=== PATIENT | male | born 1975 | race Caucasian/White ===

== ENCOUNTER 2022-04-15 06:23 | Day surgery (SDC) | payer BC ==
[~2022-04-15 06:23] MED LIST: ACETAMINOPHEN TAB 500 MG TAB PO PRN; DEXAMETHASONE SOD PHOSPHATE 4 MG/ML 1 ML VIAL IV ONE; HEPARIN SODIUM,PORCINE/PF 5,000 UNIT/0.5 ML SYRINGE SQ PRN; LACTATED RINGERS 1,000 ML IV SCH; LIDOCAINE 1% (10MG/ML) FOR IV START INTRADERMA PRN; ONDANSETRON 4 MG/2 ML VIAL IVP ONE; SCOPOLAMINE 1 MG/72 HR PATCH TRANSDERM ONE
[2022-04-15 07:01] LABS: Glucose,Whole Blood 114 mg/dL (70-110)
--- NOTE | 2022-04-15 07:40 | P.GSHP ---
History of Present Illness H&P Date: 04/15/22 Chief Complaint: Incisional hernia This is a 38-year-old male who's developed an incisional hernia located near his umbilicus. Patient presents today for laparoscopic robotic-assisted repair. Past Medical History Past Medical History: No Reported History History of Any Multi-Drug Resistant Organisms: None Reported Past Surgical History: Hernia Repair, Orthopedic Surgery Additional Past Surgical History / Comment(s): rt inguinal hernia, lft femur open compound fx repair as teen Additional Past Anesthesia/Blood Transfusion Reaction / Comment(s): could hear everything but unable to move during femur repair Smoking Status: Current every day smoker - Past Family History Mother Family Medical History: No Reported History Father Family Medical History: Cancer Additional Family Medical History / Comment(s): bladder cancer Medications and Allergies Home Medications Medication Instructions Recorded Confirmed Type Atorvastatin Calcium 20 mg PO HS 04/10/22 04/10/22 History Hydrocodone/Acetaminophen 1 tab PO TID PRN 04/10/22 04/15/22 History [Hydrocodone/Acetaminophen 7.5-325] Multivitamin [Multivitamins Adult 1 tab PO DAILY 04/10/22 04/10/22 History Gummies] OLANZapine 5 mg PO HS 04/10/22 04/15/22 History Zolpidem [Ambien] 10 mg PO HS 04/10/22 04/10/22 History lamoTRIgine 100 mg PO BID 04/10/22 04/15/22 History PARoxetine HCL [Paxil] 30 mg PO DAILY 04/15/22 04/15/22 History Allergies Allergy/AdvReac Type Severity Reaction Status Date / Time bupropion [From Wellbutrin] AdvReac Intermediate Unknown Verified 04/10/22 15:52 Surgical - Exam Vital Signs Temp Pulse Resp BP Pulse Ox 96.8 F L 67 16 132/70 100 04/15/22 06:54 04/15/22 06:54 04/15/22 06:54 04/15/22 06:54 04/15/22 06:54 - General well developed, well nourished, no distress - Eyes PERRL - ENT normal pinna - Neck no masses - Respiratory normal expansion - Cardiovascular Rhythm: regular - Abdomen 4 cm incarcerated incisional hernia located at umbilicus Abdomen: soft, non tender Results - Labs Abnormal Lab Results - Last 24 Hours (Table) 04/15/22 Range/Units 06:59 POC Glucose (mg/dL) 114 H (70-110) mg/dL Assessment and Plan Assessment: Incarcerated incisional hernia. We'll perform laparoscopic robotic-assisted repair.
[2022-04-15] MEDS ORDERED: SUCCINYLCHOLINE CHLORIDE 200 MG/10 ML VIAL IV ONE (08:00)
[2022-04-15] MEDS ORDERED: GLYCOPYRROLATE 0.2 MG/ML 2 ML VIAL ONE (08:00)
[2022-04-15] MEDS ORDERED: KETOROLAC 15 MG/ML 1 ML VIAL ONE (08:00)
[2022-04-15] MEDS ORDERED: ROCURONIUM 10 MG/ML (5 ML VIAL) IV ONE (08:00)
[2022-04-15] MEDS ORDERED: PROPOFOL 10 MG/ML 20 ML VIAL IV ONE (08:00)
[2022-04-15] MEDS ORDERED: NEOSTIGMINE 1 MG/ML 10 ML VIAL ONE (08:00)
[2022-04-15] MEDS ORDERED: LIDOCAINE 2% INJ 20 MG/ML (2 ML VIAL) ONE (08:00)
[2022-04-15] MEDS ORDERED: MIDAZOLAM 2 MG/2 ML VIAL ONE (08:00)
[2022-04-15] MEDS ORDERED: fentaNYL (PF) 50 MCG/ML 2 ML AMP ONE (08:00)
[2022-04-15] MEDS ORDERED: BUPIVACAIN-EPI 0.25%-1:200,000 30 ML VIAL SQ ONE ×2 (08:18→08:21)
[2022-04-15 09:20] VITALS: TEMP 96.9
[2022-04-15] MEDS: HYDROmorphone 0.5 MG/0.5 ML SYRINGE IVP PRN ×4 (09:22→09:55)
--- NOTE | 2022-04-15 09:23 | P.OP ---
Date of Procedure: 04/15/22 Preoperative Diagnosis: Incarcerated incisional hernia Postoperative Diagnosis: Incarcerated incisional hernia Procedure(s) Performed: Laparoscopic robotic system repair of incarcerated incisional hernia Partial omentectomy Transversus abdominis plane block Anesthesia: BIANCA Surgeon: Franki Rodrigez Estimated Blood Loss (ml): 5 Pathology: other (Omentum) Condition: stable Disposition: PACU Description of Procedure: The patient was placed on the operating table in the supine position. He received general anesthesia. His abdomen was prepped and draped usual fashion. Using a 5 mm optical trocar under direct visualization the peritoneal cavity was entered in the left upper quadrant. The abdomen was then insufflated. The laparoscope was placed back into the perineal cavity. Next a 8 mm robotic trocar was placed in the left lower quadrant and a 12 mm robotic trocar was placed in the left lateral position. The original 5 mm trocar was exchanged for a 8 mm robotic trocar. The patient's placed in the left side up position. A four-quadrant transversus abdominis block was performed using 2% local Xylocaine. And the patient was docked to the robot. The incisional hernia was visualized. Using hook cautery the peritoneum over the incisional hernia was excised. Incarcerated omentum was dissected free and sent to pathology. The fascial opening was repaired using 0V LOC suture. Next a piece of 11 cm round ventral light ST mesh was placed into the. Cavity and secured with 2 OV lock suture. The patient was undocked the robot. The needles were retrieved. The fascia of the 12 mm trocar site was closed with 0 Ethibond suture. Skin was closed inte rrupted 3-0 Monocryl suture. Dermabond dressings was applied. Patient tolerated procedure well and was sent to recovery room stable condition.
[2022-04-15 09:29] VITALS: RESP 16
[2022-04-15] MEDS ORDERED: LACTATED RINGERS 1,000 ML IV ONE (09:45)
[2022-04-15 10:50] VITALS: PULSE 81
[2022-04-15 11:44] VITALS: BP 138/77
== END 2022-04-15 12:26 | disposition home or self-care (01) ==
LOC: OR 06:23
PROVIDERS: ATTEND Surgery
DX: K43.0 Incisional hernia with obstruction, without gangrene (principal); F17.200 Nicotine dependence, unspecified, uncomplicated; Z98.890 Other specified postprocedural states; Z79.899 Other long term (current) drug therapy; Z88.8 Allergy status to other drugs, medicaments and biological substances; Z80.52 Family history of malignant neoplasm of bladder
CPT/HCPCS: 49655; 88302; C1781; J2250; J0330; J1100; J2710; J0690; J2405; J3010; J1885; J2704; J1170; J1644; J2001